=== PATIENT | female | born 1945 | race Asian ===

== ENCOUNTER 2018-03-02 18:03 | Inpatient (IN) | payer MEDICARE, OTHER ==
[2018-03-02 23:56] LABS: ADD MAN DIFF? NO
[2018-03-03 00:02] LABS: BASOPHILS % 0.3 % (0.0-2.0); HEMATOCRIT 34.7 % (37.0-47.0); HEMOGLOBIN 12.4 g/dl (12.0-16.0); LYMPHOCYTES # 1.2 10^3/ul (0.8-2.9); LYMPHOCYTES % 16.8 % (15.0-51.0); MEAN CORPUSCULAR HEMOGLOBIN 30.2 pg (29.0-33.0); MEAN CORPUSCULAR HGB CONC 35.7 g/dl (32.0-37.0); MEAN CORPUSCULAR VOLUME 84.4 fl (82.0-101.0); MEAN PLATELET VOLUME 8.3 fl (7.4-10.4); MONOCYTE # 0.7 10^3/ul (0.3-0.9); MONOCYTES % 9.8 % (0.0-11.0); NEUTROPHIL # 5.1 10^3/ul (1.6-7.5); NEUTROPHILS % 72.5 % (39.0-77.0); PLATELET COUNT 257 10^3/UL (140-415); RED BLOOD COUNT 4.11 10^6/ul (4.20-5.40); RED CELL DISTRIBUTION WIDTH 11.1 % (11.5-14.5)
[2018-03-03 00:02] LABS: WHITE BLOOD COUNT 7.1 10^3/ul (4.8-10.8)
[2018-03-03] MEDS: LORAZEPAM 2 MG INJ IV (00:04)
[2018-03-03 00:28] LABS: ALANINE AMINOTRANSFERASE 39 IU/L (13-69); ALBUMIN 4.6 g/dl (3.3-4.9); ALKALINE PHOSPHATASE 58 IU/L (42-121); ANION GAP 20 (5-13); ASPARTATE AMINO TRANSFERASE 40 IU/L (15-46); BILIRUBIN,INDIRECT 1.3 mg/dl (0-1.1); BILIRUBIN,TOTAL 1.3 mg/dl (0.2-1.3); BLOOD UREA NITROGEN 17 mg/dl (7-20); CALCIUM 9.6 mg/dl (8.4-10.2); CARBON DIOXIDE 24 mmol/L (21-31); CHLORIDE 77 mmol/L (97-110); CREATININE 0.73 mg/dl (0.44-1.00); GLUCOSE 141 mg/dl (70-220); POTASSIUM 3.1 mmol/L (3.5-5.1); SODIUM 121 mmol/L (135-144); TOTAL PROTEIN 7.3 g/dl (6.1-8.1)
[2018-03-03 00:39] LABS: B-TYPE NATRIURETIC PEPTIDE 190 PG/ML (0-125); TROPONIN-I < 0.012 ng/ml (0.000-0.120)
[2018-03-03] MEDS: SOD CHLORIDE 0.9% 1,000 ML IV ×2 (00:50→04:08)
[2018-03-03] MEDS ORDERED: LORAZEPAM 4 MG/ML VIAL IV (03:00)
[2018-03-03] MEDS ORDERED: ONDANSETRON 4 MG INJ IV (03:00)
[2018-03-03] MEDS ORDERED: ACETAMINOPHEN 325 MG TAB PO (03:00)
[2018-03-03] MEDS ORDERED: NACL 0.9% 3 ML SYG IV (03:00)
[2018-03-03] MEDS: POTASSIUM CHLORIDE (SR) 20 MEQ TAB PO ×2 (04:07→09:12)
[2018-03-03 05:21] LABS: ADD MAN DIFF? NO
[2018-03-03 05:23] LABS: BASOPHILS % 0.3 % (0.0-2.0); EOSINOPHILS % 0.3 % (0.0-7.0); HEMATOCRIT 31.5 % (37.0-47.0); HEMOGLOBIN 11.4 g/dl (12.0-16.0); LYMPHOCYTES # 1.1 10^3/ul (0.8-2.9); LYMPHOCYTES % 14.5 % (15.0-51.0); MEAN CORPUSCULAR HEMOGLOBIN 30.8 pg (29.0-33.0); MEAN CORPUSCULAR HGB CONC 36.2 g/dl (32.0-37.0); MEAN CORPUSCULAR VOLUME 85.1 fl (82.0-101.0); MEAN PLATELET VOLUME 8.4 fl (7.4-10.4); MONOCYTE # 0.6 10^3/ul (0.3-0.9); MONOCYTES % 7.8 % (0.0-11.0); NEUTROPHIL # 5.9 10^3/ul (1.6-7.5); NEUTROPHILS % 76.7 % (39.0-77.0); PLATELET COUNT 240 10^3/UL (140-415); RED CELL DISTRIBUTION WIDTH 11.1 % (11.5-14.5)
[2018-03-03 05:23] LABS: WHITE BLOOD COUNT 7.6 10^3/ul (4.8-10.8)
[2018-03-03 06:19] LABS: ANION GAP 12 (5-13); BLOOD UREA NITROGEN 14 mg/dl (7-20); CALCIUM 9.1 mg/dl (8.4-10.2); CARBON DIOXIDE 29 mmol/L (21-31); CHLORIDE 85 mmol/L (97-110); CHOL/HDL RATIO 2.6 RATIO; CHOLESTEROL 123 mg/dl (100-200); CREATININE 0.71 mg/dl (0.44-1.00); GLUCOSE 94 mg/dl (70-220); HDL CHOLESTEROL 47 mg/dl (33-92); LDL CHOLESTEROL,CALCULATED 64 mg/dl; MAGNESIUM 1.6 mg/dl (1.7-2.5); POTASSIUM 3.3 mmol/L (3.5-5.1); SODIUM 126 mmol/L (135-144); TRIGLYCERIDES 60 mg/dl (0-149)
[2018-03-03 07:09] LABS: HEMOGLOBIN A1C 5.5 % (0-5.9)
[2018-03-03] MEDS: AMLODIPINE 5 MG TAB PO ×2 (08:27→20:54)
[2018-03-03] MEDS: POTASSIUM CHLORIDE 30 MEQ in SOD CHLORIDE 0.45% 1,000 ML IV (09:12)
[2018-03-03 10:08] LABS: ANION GAP 10 (5-13); BLOOD UREA NITROGEN 14 mg/dl (7-20); CALCIUM 8.8 mg/dl (8.4-10.2); CARBON DIOXIDE 29 mmol/L (21-31); CHLORIDE 87 mmol/L (97-110); CREATININE 0.61 mg/dl (0.44-1.00); GLUCOSE 97 mg/dl (70-220); POTASSIUM 3.3 mmol/L (3.5-5.1); SODIUM 126 mmol/L (135-144)
[2018-03-03] MEDS: MAGNESIUM SULFATE 2 GM/50 ML 50 ML IVPB (10:27)
[2018-03-03 12:16] LABS: OSMOLALITY 260 mOsm/kg (280-295)
[2018-03-03 15:30] LABS: ANION GAP 9 (5-13); BLOOD UREA NITROGEN 16 mg/dl (7-20); CALCIUM 8.9 mg/dl (8.4-10.2); CARBON DIOXIDE 26 mmol/L (21-31); CHLORIDE 95 mmol/L (97-110); CREATININE 0.65 mg/dl (0.44-1.00); GLUCOSE 87 mg/dl (70-220); POTASSIUM 3.8 mmol/L (3.5-5.1); SODIUM 130 mmol/L (135-144)
[2018-03-03 21:49] LABS: ADD UMIC YES; UR ASCORBIC ACID NEGATIVE (NEGATIVE); UR BILIRUBIN (Dip) NEGATIVE (NEGATIVE); UR BLOOD (Dip) 1+ mg/dL (NEGATIVE); UR CLARITY CLEAR (CLEAR); UR COLOR STRAW (YELLOW); UR GLUCOSE (Dip) NEGATIVE (NEGATIVE); UR KETONES (Dip) NEGATIVE (NEGATIVE); UR LEUKOCYTE ESTERASE (Dip) NEGATIVE Leu/ul (NEGATIVE); UR NITRITE (Dip) NEGATIVE (NEGATIVE); UR RBC 0 /HPF (0-5); UR SPECIFIC GRAVITY (Dip) 1.005 (1.003-1.030); UR TOTAL PROTEIN (Dip) NEGATIVE (NEGATIVE); UR UROBILINOGEN (Dip) NEGATIVE (NEGATIVE); UR WBC 1 /HPF (0-5)
[2018-03-03 21:50] LABS: ANION GAP 8 (5-13); BLOOD UREA NITROGEN 17 mg/dl (7-20); CALCIUM 9.1 mg/dl (8.4-10.2); CARBON DIOXIDE 26 mmol/L (21-31); CHLORIDE 101 mmol/L (97-110); CREATININE 0.69 mg/dl (0.44-1.00); GLUCOSE 89 mg/dl (70-220); POTASSIUM 3.9 mmol/L (3.5-5.1); SODIUM 135 mmol/L (135-144)
[2018-03-03 22:02] LABS: SODIUM,URINE RANDOM 14 mmol/L (30-90)
[2018-03-03 22:45] LABS: OSMOLALITY,URINE 191 mOsm/kg (250-1200)
[2018-03-04 06:11] LABS: ALANINE AMINOTRANSFERASE 43 IU/L (13-69); ALBUMIN 3.8 g/dl (3.3-4.9); ALKALINE PHOSPHATASE 47 IU/L (42-121); ANION GAP 9 (5-13); ASPARTATE AMINO TRANSFERASE 38 IU/L (15-46); BILIRUBIN,INDIRECT 0.5 mg/dl (0-1.1); BILIRUBIN,TOTAL 0.5 mg/dl (0.2-1.3); BLOOD UREA NITROGEN 14 mg/dl (7-20); CALCIUM 8.9 mg/dl (8.4-10.2); CARBON DIOXIDE 26 mmol/L (21-31); CHLORIDE 103 mmol/L (97-110); CREATININE 0.67 mg/dl (0.44-1.00); GLUCOSE 89 mg/dl (70-220); MAGNESIUM 2.3 mg/dl (1.7-2.5); POTASSIUM 3.7 mmol/L (3.5-5.1); SODIUM 138 mmol/L (135-144); TOTAL PROTEIN 6.5 g/dl (6.1-8.1)
[2018-03-04] MEDS: AMLODIPINE 5 MG TAB PO (08:45)
== END 2018-03-04 14:12 | disposition home or self-care (01) | DRG 641 ==
LOC: E/R 18:03 → 6WM 03-03 02:29
DX: E87.1 Hypo-osmolality and hyponatremia (principal); E87.6 Hypokalemia; I10 Essential (primary) hypertension; R00.2 Palpitations; S00.512A Abrasion of oral cavity, initial encounter
CPT/HCPCS: 36415; 70450; 71045; 80048; 80053; 80061; 81001; 83036; 83735; 83880; 83930; 83935; 84300; 84443; 84484; 85025; 93005; 96374; 99285-25

== ENCOUNTER 2018-05-04 20:29 | Emergency (ER) | payer MEDICARE, OTHER ==
[2018-05-05 01:08] LABS: ADD MAN DIFF? NO
[2018-05-05 01:09] LABS: WHITE BLOOD COUNT 4.5 10^3/ul (4.8-10.8)
[2018-05-05 01:09] LABS: BASOPHILS % 0.7 % (0.0-2.0); EOSINOPHILS # 0.1 10^3/ul (0.0-0.5); EOSINOPHILS % 2.9 % (0.0-7.0); HEMATOCRIT 35.6 % (37.0-47.0); HEMOGLOBIN 12.1 g/dl (12.0-16.0); LYMPHOCYTES # 1.5 10^3/ul (0.8-2.9); LYMPHOCYTES % 34.1 % (15.0-51.0); MEAN CORPUSCULAR HEMOGLOBIN 30.2 pg (29.0-33.0); MEAN CORPUSCULAR VOLUME 88.8 fl (82.0-101.0); MEAN PLATELET VOLUME 8.5 fl (7.4-10.4); MONOCYTE # 0.9 10^3/ul (0.3-0.9); MONOCYTES % 19.1 % (0.0-11.0); NEUTROPHIL # 1.9 10^3/ul (1.6-7.5); NEUTROPHILS % 42.8 % (39.0-77.0); PLATELET COUNT 235 10^3/UL (140-415); RED BLOOD COUNT 4.01 10^6/ul (4.20-5.40); RED CELL DISTRIBUTION WIDTH 11.8 % (11.5-14.5)
[2018-05-05 01:28] LABS: INR 0.87; PROTIME 11.9 Sec (11.9-14.9); PT RATIO 0.9
[2018-05-05 01:29] LABS: PARTIAL THROMBOPLASTIN TIME 28.5 Sec (23.0-35.0)
[2018-05-05 01:31] LABS: ANION GAP 10 (5-13); BLOOD UREA NITROGEN 21 mg/dl (7-20); CALCIUM 9.8 mg/dl (8.4-10.2); CARBON DIOXIDE 29 mmol/L (21-31); CHLORIDE 93 mmol/L (97-110); CREATININE 0.69 mg/dl (0.44-1.00); GLUCOSE 96 mg/dl (70-220); POTASSIUM 3.1 mmol/L (3.5-5.1); SODIUM 132 mmol/L (135-144)
[2018-05-05] MEDS: POTASSIUM CHLORIDE (SR) 20 MEQ TAB PO (02:43)
== END 2018-05-05 02:50 | disposition home or self-care (01) ==
LOC: E/R 20:29
DX: I10 Essential (primary) hypertension (principal); E87.6 Hypokalemia; D72.819 Decreased white blood cell count, unspecified
CPT/HCPCS: 36415; 80048; 85025; 85610; 85730; 99283

== ENCOUNTER 2018-05-08 05:46 | Emergency (ER) | payer MEDICARE, OTHER ==
[2018-05-08 07:12] LABS: ADD MAN DIFF? NO
[2018-05-08 07:14] LABS: WHITE BLOOD COUNT 3.4 10^3/ul (4.8-10.8)
[2018-05-08 07:14] LABS: BASOPHILS % 0.9 % (0.0-2.0); EOSINOPHILS # 0.1 10^3/ul (0.0-0.5); EOSINOPHILS % 2.6 % (0.0-7.0); HEMOGLOBIN 12.8 g/dl (12.0-16.0); LYMPHOCYTES # 1.1 10^3/ul (0.8-2.9); LYMPHOCYTES % 32.4 % (15.0-51.0); MEAN CORPUSCULAR HEMOGLOBIN 30.5 pg (29.0-33.0); MEAN CORPUSCULAR HGB CONC 33.7 g/dl (32.0-37.0); MEAN CORPUSCULAR VOLUME 90.7 fl (82.0-101.0); MEAN PLATELET VOLUME 8.5 fl (7.4-10.4); MONOCYTE # 0.4 10^3/ul (0.3-0.9); MONOCYTES % 11.1 % (0.0-11.0); NEUTROPHIL # 1.8 10^3/ul (1.6-7.5); NEUTROPHILS % 52.4 % (39.0-77.0); PLATELET COUNT 260 10^3/UL (140-415); RED BLOOD COUNT 4.19 10^6/ul (4.20-5.40); RED CELL DISTRIBUTION WIDTH 11.9 % (11.5-14.5)
[2018-05-08] MEDS: SOD CHLORIDE 0.9% 1,000 ML IV (07:15)
[2018-05-08 07:36] LABS: ANION GAP 11 (5-13); BLOOD UREA NITROGEN 21 mg/dl (7-20); CALCIUM 9.7 mg/dl (8.4-10.2); CARBON DIOXIDE 29 mmol/L (21-31); CHLORIDE 95 mmol/L (97-110); GLUCOSE 104 mg/dl (70-220); POTASSIUM 3.3 mmol/L (3.5-5.1); SODIUM 135 mmol/L (135-144)
[2018-05-08] MEDS: IOHEXOL 100 ML (07:47)
[2018-05-08] MEDS: IOHEXOL 350MG/ML 50 ML BTL (07:47)
[2018-05-08] MEDS: SOD CHLORIDE 0.9% 100 ML (07:47)
[2018-05-08 07:48] LABS: TROPONIN-I < 0.012 ng/ml (0.000-0.120)
[2018-05-08] MEDS: morphine 4 MG/ML VIAL IV (09:13)
[2018-05-08] MEDS: ONDANSETRON 4 MG INJ IV (09:13)
== END 2018-05-08 11:08 | disposition home or self-care (01) ==
LOC: E/R 11:08
DX: I67.1 Cerebral aneurysm, nonruptured (principal); I10 Essential (primary) hypertension; I16.0 Hypertensive urgency
CPT/HCPCS: 36415; 70450; 70496; 70498; 80048; 84484; 85025; 93005; 99285-25

== ENCOUNTER 2018-05-26 12:22 | Emergency (ER) | payer MEDICARE, OTHER ==
[2018-05-26] MEDS: ALPRAZOLAM 0.25 MG TAB PO (15:31)
[2018-05-26] MEDS: IBUPROFEN 600 MG TAB PO (15:31)
== END 2018-05-26 16:08 | disposition home or self-care (01) ==
LOC: E/R 12:22
DX: I10 Essential (primary) hypertension (principal); R40.2142 Coma scale, eyes open, spontaneous, at arrival to emergency department; R40.2362 Coma scale, best motor response, obeys commands, at arrival to emergency department; R40.2252 Coma scale, best verbal response, oriented, at arrival to emergency department; I67.1 Cerebral aneurysm, nonruptured; F41.9 Anxiety disorder, unspecified; T43.211A Poisoning by selective serotonin and norepinephrine reuptake inhibitors, accidental (unintentional), initial encounter
CPT/HCPCS: 99283

== ENCOUNTER 2018-06-18 08:56 | Emergency (ER) | payer MEDICARE, OTHER ==
[2018-06-18 09:34] LABS: ADD MAN DIFF? NO
[2018-06-18 09:36] LABS: ABNORMAL IP MESSAGE 1; BASOPHILS % 0.5 % (0.0-2.0); EOSINOPHILS % 0.3 % (0.0-7.0); HEMOGLOBIN 11.7 g/dl (12.0-16.0); LYMPHOCYTES # 0.6 10^3/ul (0.8-2.9); LYMPHOCYTES % 14.4 % (15.0-51.0); MEAN CORPUSCULAR HEMOGLOBIN 30.5 pg (29.0-33.0); MEAN CORPUSCULAR HGB CONC 35.5 g/dl (32.0-37.0); MEAN CORPUSCULAR VOLUME 86.2 fl (82.0-101.0); MEAN PLATELET VOLUME 8.4 fl (7.4-10.4); MONOCYTE # 0.4 10^3/ul (0.3-0.9); MONOCYTES % 9.8 % (0.0-11.0); NEUTROPHILS % 74.7 % (39.0-77.0); PLATELET COUNT 244 10^3/UL (140-415); RED BLOOD COUNT 3.83 10^6/ul (4.20-5.40); RED CELL DISTRIBUTION WIDTH 11.2 % (11.5-14.5)
[2018-06-18 09:37] LABS: POSITIVE DIFF @See below
[2018-06-18 10:11] LABS: ANION GAP 12 (5-13); BLOOD UREA NITROGEN 14 mg/dl (7-20); CALCIUM 9.8 mg/dl (8.4-10.2); CARBON DIOXIDE 29 mmol/L (21-31); CHLORIDE 80 mmol/L (97-110); GLUCOSE 150 mg/dl (70-220); SODIUM 121 mmol/L (135-144)
[2018-06-18 10:22] LABS: TROPONIN-I < 0.012 ng/ml (0.000-0.120)
[2018-06-18] MEDS: ACETAMINOPHEN 500 MG TAB PO (10:38)
== END 2018-06-18 10:47 | disposition home or self-care (01) ==
LOC: E/R 08:56
DX: I10 Essential (primary) hypertension (principal); R40.2142 Coma scale, eyes open, spontaneous, at arrival to emergency department; R40.2362 Coma scale, best motor response, obeys commands, at arrival to emergency department; R40.2252 Coma scale, best verbal response, oriented, at arrival to emergency department
CPT/HCPCS: 36415; 71045; 80048; 84484; 85025; 93005; 99285-25

== ENCOUNTER 2018-06-18 14:19 | Inpatient (IN) | payer MEDICARE, OTHER ==
[2018-06-18 15:59] LABS: ADD MAN DIFF? NO
[2018-06-18] MEDS ORDERED: NACL 0.9% 3 ML SYG IV (16:00)
[2018-06-18] MEDS ORDERED: morphine 2 MG INJ IV (16:00)
[2018-06-18] MEDS ORDERED: ONDANSETRON 4 MG INJ IV (16:00)
[2018-06-18] MEDS ORDERED: ACETAMINOPHEN 325 MG TAB PO (16:00)
[2018-06-18] MEDS ORDERED: hydrALAzine 20 MG INJ IV (16:00)
[2018-06-18 16:02] LABS: BASOPHILS % 0.3 % (0.0-2.0); EOSINOPHILS % 0.3 % (0.0-7.0); HEMATOCRIT 31.7 % (37.0-47.0); HEMOGLOBIN 11.3 g/dl (12.0-16.0); LYMPHOCYTES # 0.8 10^3/ul (0.8-2.9); LYMPHOCYTES % 21.2 % (15.0-51.0); MEAN CORPUSCULAR HEMOGLOBIN 30.2 pg (29.0-33.0); MEAN CORPUSCULAR HGB CONC 35.6 g/dl (32.0-37.0); MEAN CORPUSCULAR VOLUME 84.8 fl (82.0-101.0); MEAN PLATELET VOLUME 8.5 fl (7.4-10.4); MONOCYTE # 0.5 10^3/ul (0.3-0.9); MONOCYTES % 14.5 % (0.0-11.0); NEUTROPHIL # 2.3 10^3/ul (1.6-7.5); NEUTROPHILS % 63.4 % (39.0-77.0); PLATELET COUNT 232 10^3/UL (140-415); RED BLOOD COUNT 3.74 10^6/ul (4.20-5.40)
[2018-06-18 16:02] LABS: WHITE BLOOD COUNT 3.6 10^3/ul (4.8-10.8)
[2018-06-18 16:20] LABS: ALANINE AMINOTRANSFERASE 35 IU/L (13-69); ALBUMIN 4.2 g/dl (3.3-4.9); ALKALINE PHOSPHATASE 46 IU/L (42-121); ANION GAP 14 (5-13); ASPARTATE AMINO TRANSFERASE 32 IU/L (15-46); BILIRUBIN,INDIRECT 1.1 mg/dl (0-1.1); BILIRUBIN,TOTAL 1.1 mg/dl (0.2-1.3); BLOOD UREA NITROGEN 16 mg/dl (7-20); CALCIUM 9.8 mg/dl (8.4-10.2); CARBON DIOXIDE 27 mmol/L (21-31); CHLORIDE 77 mmol/L (97-110); CREATININE 0.64 mg/dl (0.44-1.00); GLUCOSE 125 mg/dl (70-220)
[2018-06-18 16:30] LABS: SODIUM 118 mmol/L (135-144)
[2018-06-18 16:31] LABS: POTASSIUM 2.8 mmol/L (3.5-5.1)
[2018-06-18] MEDS: SOD CHLORIDE 0.9% 500 ML IV (16:43)
[2018-06-18] MEDS: POTASSIUM CHLORIDE 100 ML IVPB ×2 (16:48→21:33)
[2018-06-18 17:02] LABS: URIC ACID 4.8 mg/dl (3.1-7.9)
[2018-06-18] MEDS: POTASSIUM CHLORIDE (SR) 20 MEQ TAB PO (18:53)
[2018-06-18 19:29] LABS: ADD UMIC YES; UR ASCORBIC ACID NEGATIVE (NEGATIVE); UR BACTERIA FEW /HPF (NONE SEEN); UR BILIRUBIN (Dip) NEGATIVE (NEGATIVE); UR BLOOD (Dip) 1+ mg/dL (NEGATIVE); UR CLARITY CLEAR (CLEAR); UR COLOR YELLOW (YELLOW); UR GLUCOSE (Dip) NEGATIVE (NEGATIVE); UR KETONES (Dip) 1+ mg/dL (NEGATIVE); UR LEUKOCYTE ESTERASE (Dip) NEGATIVE Leu/ul (NEGATIVE); UR NITRITE (Dip) NEGATIVE (NEGATIVE); UR RBC 5 /HPF (0-5); UR SPECIFIC GRAVITY (Dip) 1.013 (1.003-1.030); UR TOTAL PROTEIN (Dip) NEGATIVE (NEGATIVE); UR UROBILINOGEN (Dip) NEGATIVE (NEGATIVE); UR WBC 1 /HPF (0-5)
[2018-06-18 19:41] LABS: SODIUM,URINE RANDOM 57 mmol/L (30-90)
[2018-06-18 19:41] LABS: CREATININE,URINE RANDOM 64.01 mg/dl (20-320)
[2018-06-18 19:42] LABS: OSMOLALITY,URINE 416 mOsm/kg (250-1200)
[2018-06-18] MEDS: SOD CHLORIDE 0.9% 1,000 ML IV (20:52)
[2018-06-18] MEDS: HYDROCODONE/APAP (5/325) TAB PO (20:52)
[2018-06-18] MEDS: ZOLPIDEM 5 MG TAB PO (23:46)
[2018-06-19 01:18] LABS: ALBUMIN 3.6 g/dl (3.3-4.9); ANION GAP 10 (5-13); BLOOD UREA NITROGEN 14 mg/dl (7-20); CARBON DIOXIDE 25 mmol/L (21-31); CHLORIDE 84 mmol/L (97-110); CREATININE 0.65 mg/dl (0.44-1.00); GLUCOSE 80 mg/dl (70-220); PHOSPHORUS 2.9 mg/dl (2.5-4.9); POTASSIUM 3.2 mmol/L (3.5-5.1)
[2018-06-19 01:24] LABS: SODIUM 119 mmol/L (135-144)
[2018-06-19 07:03] LABS: ADD MAN DIFF? NO
[2018-06-19 07:06] LABS: WHITE BLOOD COUNT 4.5 10^3/ul (4.8-10.8)
[2018-06-19 07:06] LABS: BASOPHILS % 0.4 % (0.0-2.0); EOSINOPHILS % 0.4 % (0.0-7.0); HEMATOCRIT 31.9 % (37.0-47.0); HEMOGLOBIN 11.4 g/dl (12.0-16.0); LYMPHOCYTES # 0.7 10^3/ul (0.8-2.9); LYMPHOCYTES % 15.7 % (15.0-51.0); MEAN CORPUSCULAR HEMOGLOBIN 30.6 pg (29.0-33.0); MEAN CORPUSCULAR HGB CONC 35.7 g/dl (32.0-37.0); MEAN CORPUSCULAR VOLUME 85.5 fl (82.0-101.0); MEAN PLATELET VOLUME 8.9 fl (7.4-10.4); MONOCYTE # 0.8 10^3/ul (0.3-0.9); NEUTROPHILS % 66.3 % (39.0-77.0); PLATELET COUNT 242 10^3/UL (140-415); RED BLOOD COUNT 3.73 10^6/ul (4.20-5.40); RED CELL DISTRIBUTION WIDTH 11.3 % (11.5-14.5)
[2018-06-19 07:35] LABS: HEMOGLOBIN A1C 5.4 % (0-5.9)
[2018-06-19 08:04] LABS: ALANINE AMINOTRANSFERASE 35 IU/L (13-69); ALBUMIN 3.9 g/dl (3.3-4.9); ALKALINE PHOSPHATASE 47 IU/L (42-121); ANION GAP 9 (5-13); ASPARTATE AMINO TRANSFERASE 45 IU/L (15-46); BILIRUBIN,INDIRECT 1.2 mg/dl (0-1.1); BILIRUBIN,TOTAL 1.2 mg/dl (0.2-1.3); BLOOD UREA NITROGEN 11 mg/dl (7-20); CALCIUM 9.5 mg/dl (8.4-10.2); CARBON DIOXIDE 25 mmol/L (21-31); CHLORIDE 92 mmol/L (97-110); CHOL/HDL RATIO 2.4 RATIO; CHOLESTEROL 117 mg/dl (100-200); CREATININE 0.65 mg/dl (0.44-1.00); GLUCOSE 76 mg/dl (70-220); HDL CHOLESTEROL 48 mg/dl (33-92); LDL CHOLESTEROL,CALCULATED 58 mg/dl; MAGNESIUM 1.8 mg/dl (1.7-2.5); POTASSIUM 3.4 mmol/L (3.5-5.1); SODIUM 126 mmol/L (135-144); TOTAL PROTEIN 6.5 g/dl (6.1-8.1); TRIGLYCERIDES 57 mg/dl (0-149)
[2018-06-19] MEDS: NIFEdipine (XL) 60 MG TAB PO (08:35)
[2018-06-19] MEDS ORDERED: METOPROLOL (XL) 50 MG TAB PO (09:00)
[2018-06-19] MEDS: POTASSIUM CHLORIDE (SR) 20 MEQ TAB PO (10:17)
[2018-06-19] MEDS: SOD CHLORIDE 0.9% 1,000 ML IV (11:38)
[2018-06-19 15:18] LABS: ANION GAP 7 (5-13); BLOOD UREA NITROGEN 14 mg/dl (7-20); CALCIUM 9.4 mg/dl (8.4-10.2); CARBON DIOXIDE 26 mmol/L (21-31); CHLORIDE 94 mmol/L (97-110); GLUCOSE 97 mg/dl (70-220); POTASSIUM 3.7 mmol/L (3.5-5.1); SODIUM 127 mmol/L (135-144)
[2018-06-20] MEDS: SOD CHLORIDE 0.9% 1,000 ML IV
[2018-06-20] MEDS: ZOLPIDEM 5 MG TAB PO (01:45)
[2018-06-20 06:15] LABS: ADD MAN DIFF? NO
[2018-06-20 06:24] LABS: BASOPHILS % 0.8 % (0.0-2.0); EOSINOPHILS % 0.8 % (0.0-7.0); HEMOGLOBIN 11.7 g/dl (12.0-16.0); LYMPHOCYTES # 0.9 10^3/ul (0.8-2.9); LYMPHOCYTES % 25.1 % (15.0-51.0); MEAN CORPUSCULAR HGB CONC 34.4 g/dl (32.0-37.0); MEAN CORPUSCULAR VOLUME 87.2 fl (82.0-101.0); MEAN PLATELET VOLUME 8.6 fl (7.4-10.4); MONOCYTE # 0.9 10^3/ul (0.3-0.9); MONOCYTES % 25.3 % (0.0-11.0); NEUTROPHIL # 1.7 10^3/ul (1.6-7.5); NEUTROPHILS % 47.7 % (39.0-77.0); PLATELET COUNT 241 10^3/UL (140-415); RED CELL DISTRIBUTION WIDTH 11.5 % (11.5-14.5)
[2018-06-20 06:24] LABS: WHITE BLOOD COUNT 3.6 10^3/ul (4.8-10.8)
[2018-06-20 06:50] LABS: ANION GAP 11 (5-13); BLOOD UREA NITROGEN 12 mg/dl (7-20); CALCIUM 9.3 mg/dl (8.4-10.2); CARBON DIOXIDE 26 mmol/L (21-31); CHLORIDE 97 mmol/L (97-110); CREATININE 0.63 mg/dl (0.44-1.00); GLUCOSE 79 mg/dl (70-220); MAGNESIUM 1.8 mg/dl (1.7-2.5); POTASSIUM 3.4 mmol/L (3.5-5.1); SODIUM 134 mmol/L (135-144)
[2018-06-20] MEDS: NIFEdipine (XL) 30 MG TAB PO (08:13)
[2018-06-20] MEDS: POTASSIUM CHLORIDE 20 MEQ POWDER FOR ORAL SOLN PO (08:14)
[2018-06-20] MEDS: hydrALAzine 20 MG INJ IV (11:48)
[2018-06-20 14:52] LABS: CREATININE, RANDOM URINE 70 mg/dL (20-275); MICROALBUMIN 0.6 mg/dL; MICROALBUMIN/CREATININE RATIO 9 (<30)
[2018-06-21 05:39] LABS: ADD MAN DIFF? NO
[2018-06-21 05:45] LABS: EOSINOPHILS # 0.1 10^3/ul (0.0-0.5); EOSINOPHILS % 1.6 % (0.0-7.0); HEMATOCRIT 36.5 % (37.0-47.0); HEMOGLOBIN 12.7 g/dl (12.0-16.0); LYMPHOCYTES # 1.1 10^3/ul (0.8-2.9); LYMPHOCYTES % 37.3 % (15.0-51.0); MEAN CORPUSCULAR HEMOGLOBIN 30.2 pg (29.0-33.0); MEAN CORPUSCULAR HGB CONC 34.8 g/dl (32.0-37.0); MEAN CORPUSCULAR VOLUME 86.9 fl (82.0-101.0); MEAN PLATELET VOLUME 8.4 fl (7.4-10.4); MONOCYTE # 0.7 10^3/ul (0.3-0.9); MONOCYTES % 21.2 % (0.0-11.0); NEUTROPHIL # 1.2 10^3/ul (1.6-7.5); NEUTROPHILS % 38.6 % (39.0-77.0); PLATELET COUNT 263 10^3/UL (140-415); RED CELL DISTRIBUTION WIDTH 11.8 % (11.5-14.5)
[2018-06-21 05:45] LABS: WHITE BLOOD COUNT 3.1 10^3/ul (4.8-10.8)
[2018-06-21 06:08] LABS: ANION GAP 11 (5-13); BLOOD UREA NITROGEN 11 mg/dl (7-20); CALCIUM 9.6 mg/dl (8.4-10.2); CARBON DIOXIDE 28 mmol/L (21-31); CHLORIDE 95 mmol/L (97-110); CREATININE 0.62 mg/dl (0.44-1.00); GLUCOSE 92 mg/dl (70-220); POTASSIUM 3.6 mmol/L (3.5-5.1); SODIUM 134 mmol/L (135-144)
[2018-06-21] MEDS: NIFEdipine (XL) 30 MG TAB PO (07:52)
[2018-06-21] MEDS: POTASSIUM CHLORIDE (SR) 20 MEQ TAB PO (08:59)
[2018-06-22 06:41] LABS: ALBUMIN 4.1 g/dl (3.3-4.9); ANION GAP 11 (5-13); BLOOD UREA NITROGEN 11 mg/dl (7-20); CALCIUM 9.4 mg/dl (8.4-10.2); CARBON DIOXIDE 26 mmol/L (21-31); CHLORIDE 95 mmol/L (97-110); CREATININE 0.59 mg/dl (0.44-1.00); GLUCOSE 98 mg/dl (70-220); MAGNESIUM 2.1 mg/dl (1.7-2.5); PHOSPHORUS 2.9 mg/dl (2.5-4.9); POTASSIUM 3.6 mmol/L (3.5-5.1); SODIUM 132 mmol/L (135-144)
[2018-06-22] MEDS: POTASSIUM CHLORIDE (SR) 20 MEQ TAB PO (08:53)
[2018-06-22] MEDS: LISINOPRIL 10 MG TAB PO (08:54)
[2018-06-22] MEDS: NIFEdipine (XL) 30 MG TAB PO (08:55)
[2018-06-22] MEDS ORDERED: LISINOPRIL 10 MG TAB PO ×2 (09:00)
== END 2018-06-22 15:08 | disposition home or self-care (01) | DRG 641 ==
LOC: E/R 14:19 → 6WM 15:31
DX: E87.1 Hypo-osmolality and hyponatremia (principal); E87.6 Hypokalemia; I10 Essential (primary) hypertension; D72.819 Decreased white blood cell count, unspecified; D64.9 Anemia, unspecified; R20.2 Paresthesia of skin
CPT/HCPCS: 80048; 80053; 80061; 80069; 81001; 81003; 82043; 83036; 83735; 83935; 84100; 84155; 84300; 84443; 84560; 85025; 99285-25